=== PATIENT | female | born 1995 | race Asian ===

== ENCOUNTER 2020-06-17 21:03 | Emergency (ER) | payer SELFPAY ==
[~2020-06-17] VITALS: Ht 165.1 cm; Wt 52.2 kg
[2020-06-17 21:03] VITALS: BP_SYST 144
[2020-06-17 22:30] VITALS: BP_SYST 144
== END 2020-06-17 22:30 | disposition left against medical advice (07) ==
LOC: SED 21:03
DX: R06.02 Shortness of breath (principal); Z53.21 Procedure and treatment not carried out due to patient leaving prior to being seen by health care provider